=== PATIENT | male | born 1930 | race Caucasian/White ===

== ENCOUNTER 2018-10-27 17:57 | Emergency (ER) | payer MEDICARE, OTHER ==
[~2018-10-27] VITALS: Ht 167.6 cm; Wt 80.7 kg
[2018-10-27] MEDS ORDERED: LIDOCAINE 1%-EPI 1:100,000 20 ML VIAL ONE (18:01)
--- NOTE | 2018-10-27 18:06 | NUR ---
PT BROUGHT IN BY PARAMEDICS FOR TIP AND FALL WHILE AT IN AND OUT RESTARAUNT. PT ALERT WITH ORIENTATION X 4
[2018-10-27] MEDS ORDERED: TDAP [DIPH/PERTUSSIS/TET] 0.5 ML VIAL IM ONE ×2 (20:08→20:30)
[2018-10-27] MEDS ORDERED: BACITRACIN ZINC OINT PACKET 1 EA PACKET TP ONE ×2 (20:13→20:30)
[2018-10-27 20:58] VITALS: BP 170/81
== END 2018-10-27 20:59 | disposition home or self-care (01) ==
LOC: ER 17:59
DX: S01.81XA Laceration without foreign body of other part of head, initial encounter (principal); I10 Essential (primary) hypertension; I25.10 Atherosclerotic heart disease of native coronary artery without angina pectoris; Z95.5 Presence of coronary angioplasty implant and graft; W01.198A Fall on same level from slipping, tripping and stumbling with subsequent striking against other object, initial encounter; Y93.89 Activity, other specified; Y92.480 Sidewalk as the place of occurrence of the external cause; Y99.8 Other external cause status
CPT/HCPCS: 70450-TC; 72125-TC; 90715; J3490